=== PATIENT | female | born 1965 | race Caucasian/White ===

== ENCOUNTER → 2020-01-01 | Outpatient (CLI) | payer BC ==
[2020-01-01 13:30] VITALS: BP 124/81; PULSE 80; RESP 20; TEMP 98.1; BMI 42.7
--- NOTE | 2020-01-09 09:13 | P.HPBAR ---
Bariatric H&P - History & Physicial H&P Date: 01/01/20 History & Physicial: Visit/CC: n/v, heartburn with empty band Patient initial contact: Initial weight: Initial weight in pounds: Height: 5 ft 8 in Initial BMI: Last weight: Current weight: 127.596 kg Current weight in pounds: 281.30 Current BMI: 42.7 [place] body weight (based on NIH guidelines): 63.503 kg Excess body weight loss: The patient is a 54 year-old F who presents for Bariatric Assessment. Patient presents today due to dysphagia and GERD. She states she has food intermittently stop. She's not sure if she has fluid in her LAP-BAND. She's not been seen many years. Past Medical History Past Medical History: Hypertension, Thyroid Disorder History of Any Multi-Drug Resistant Organisms: None Reported Past Surgical History: Bariatric Surgery Additional Past Surgical History / Comment(s): lap band surgery Past Anesthesia/Blood Transfusion Reactions: No Reported Reaction Smoking Status: Never smoker Surgical - Exam Vital Signs Temp Pulse Resp BP 98.1 F 80 20 124/81 01/01/20 13:07 01/01/20 13:07 01/01/20 13:07 01/01/20 13:07 - General well developed, well nourished, no distress - Eyes PERRL - ENT normal pinna - Neck no masses - Respiratory normal expansion - Cardiovascular Rhythm: regular - Abdomen Abdomen: soft, non tender Bariatric Assessment & Plan Plan: The patient's lap band was adjusted. She had 0.5 mL in her Rosy. Her band was emptied. The patient is considering conversion sleeve gastrectomy. She will look into her insurance options and decide. Bariatric Checklist Checklist: Plan: Checklist: EGD: 1. Hiatal hernia: 2. H. Pylori: HgbA1c: Vitamin D: Smoking: Never smoker Primary care physician referral: Dr Andrew Mcclelland in [place] Psychiatry clearance: Cardiology clearance: Sleep study: Diet journal: VTE risk score: VTE risk level: Rehab needs at discharge:
== END | disposition home or self-care (01) ==
LOC: BARWHC3 13:07
PROVIDERS: ATTEND Surgery
DX: Z46.51 Encounter for fitting and adjustment of gastric lap band (principal); R13.10 Dysphagia, unspecified; K21.9 Gastro-esophageal reflux disease without esophagitis; Z98.84 Bariatric surgery status
CPT/HCPCS: 99212